=== PATIENT | female | born 1955 | race Caucasian/White ===

== ENCOUNTER 2022-04-14 13:13 | Outpatient (CLI) | payer MEDICARE, SELFPAY ==
--- NOTE | 2022-04-14 13:40 | CRLHL7_ITS ---
For Patients: As a result of the Century Cures Act, medical imaging exams and procedure reports are released immediately into your electronic medical record. You may view this report before your referring provider. If you have questions, please contact your health care provider. BILATERAL SCREENING MAMMOGRAM WITH COMPUTER-AIDED DETECTION AND TOMOSYNTHESIS TECHNIQUE: CC and MLO views were obtained. These mammographic images have been obtained using full-field digital technique. These mammographic images were interpreted with the benefit of computer-aided detection. Breast Tomosynthesis was used in this interpretation. COMPARISON FILM: 03/09/21, /, 02/13/19 FINDINGS: The breasts are heterogeneously dense, which may obscure small masses IMPRESSION: There is no radiographic evidence for malignancy. ASSESSMENT: BI-RADS Category 1: Negative RECOMMENDATION: Routine screening mammogram in 1 year. A lay language report of this examination will be provided to the patient. Navin Clark M.D. Diagnostic Radiologist [email or web address] SANJAY/Dictated by: Navin Clark MD @ 04/15/2022 9:21:00 AM (Electronically Signed)
== END 2022-04-14 13:14 | disposition home or self-care (01) ==
LOC: MAMMO 13:16
PROVIDERS: PCP Physician Assistant Medical; Visit Provider Physician Assistant Medical
DX: Z12.31 Encounter for screening mammogram for malignant neoplasm of breast (principal); R92.2 Inconclusive mammogram
CPT/HCPCS: 77063; 77067

== ENCOUNTER 2023-02-17 08:49 | Outpatient (CLI) | payer MEDICARE, SELFPAY ==
--- NOTE | 2023-02-17 09:17 | W.ANESCHARGE ---
Anesthesia Charges Start Date/Time Anesthesia Start Date: 02/17/23 Anesthesia Start Time: 09:58 Stop Date/Time Anesthesia Stop Date: 02/17/23 Anesthesia Stop Time: 10:41 Summary Extremes of Age - Over 70 or under 1: MDA
--- NOTE | 2023-02-17 10:44 | P.ANES_ITS ---
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
== END 2023-02-17 08:50 | disposition home or self-care (01) ==
LOC: OP CLINIC 08:49
PROVIDERS: PCP Physician Assistant Medical; Visit Provider Surgery
DX: Z12.11 Encounter for screening for malignant neoplasm of colon (principal); K63.5 Polyp of colon; K62.1 Rectal polyp; Z86.010 Personal history of colon polyps
CPT/HCPCS: 45385; 811; 88305; 99100; J2704

== ENCOUNTER 2023-04-27 13:11 | Outpatient (CLI) | payer MEDICARE, SELFPAY ==
--- NOTE | 2023-04-27 13:40 | CRLHL7_ITS ---
For Patients: As a result of the Century Cures Act, medical imaging exams and procedure reports are released immediately into your electronic medical record. You may view this report before your referring provider. If you have questions, please contact your health care provider. BILATERAL SCREENING MAMMOGRAM WITH COMPUTER-AIDED DETECTION AND TOMOSYNTHESIS TECHNIQUE: CC and MLO views were obtained. These mammographic images have been obtained using full-field digital technique. These mammographic images were interpreted with the benefit of computer-aided detection. Breast Tomosynthesis was used in this interpretation. COMPARISON FILM: 04/14/22, 03/09/21, 03/06/20. FINDINGS: The breasts are heterogeneously dense, which may obscure small masses IMPRESSION: There is no radiographic evidence for malignancy. ASSESSMENT: BI-RADS Category 1: Negative RECOMMENDATION: Routine screening mammogram in 1 year. A lay language report of this examination will be provided to the patient. Navin Clark M.D. Diagnostic Radiologist [email or web address] SANJAY/Dictated by: Navin Clark MD @ 04/28/2023 8:47:00 AM (Electronically Signed)
== END 2023-04-27 13:12 | disposition home or self-care (01) ==
LOC: MAMMO 13:13
PROVIDERS: PCP Physician Assistant Medical; Visit Provider Physician Assistant Medical
DX: Z12.31 Encounter for screening mammogram for malignant neoplasm of breast (principal); R92.2 Inconclusive mammogram
CPT/HCPCS: 77063; 77067

== ENCOUNTER 2024-01-31 12:42 | Outpatient (CLI) | payer MEDICARE, SELFPAY ==
--- NOTE | 2024-01-31 13:00 | MR_ITS ---
Patient: [facility] Facility:?[facility] Patient ID:?[id number] Site Patient ID:?[id number]. Site :?[id number] Study:?MRI-Head W/ and W/O Cont 20 CC DOATERM TRIGEMINAL-01/31/2024 2:26:34 PM Ordering Physician:?LUCY SAPP Final Report: Indication: Numbness in left side of head Technique: MRI brain trigeminal protocol with and without contrast. DWI and ADC mapping sequences. Sagittal T1 weighted sequence. Axial FLAIR and T2 weighted sequences of the whole brain. 3D T2-weighted high resolution sequence of the trigeminal nerves. Thin section T1 weighted axial and coronal pre-contrast and post-contrast sequences of the trigeminal nerves. 3D T1 weighted post-contrast sequence of the whole brain. 20 cc Dotarem gadolinium based contrast agent was used. Comparison: None Findings: No diffusion abnormalities. No evidence of recent or prior hemorrhage. No mass effect. The guerra and white matter are normal in signal intensity. The sella turcica, its contents and adjacent structures appear normal. All the major intracranial vascular structures demonstrate normal flow-related signal voids and intraluminal enhancement. The pituitary gland, optic chiasm, pineal gland, and cerebellar tonsils are unremarkable. The inner ears, internal auditory canals, cerebellopontine angle cisterns, cerebellum, brainstem and temporal lobes bilaterally are normal in appearance. A loop of the left AICA contacts the cephalad surface of the left trigeminal nerve without deformity of the nerve. There is no mass or pathologic enhancement involving the cranial nerves on either side. There is a 6 x 5 mm focus of intra-axial enhancement along the parafalcine left frontal lobe without parenchymal edema. Incidental hyperostosis frontalis internus. The orbital contents are normal. No marrow signal abnormality. The scalp and other imaged soft tissue structures are normal in appearance. Trace left mastoid effusion. Minimal mucosal thickening in the left sphenoid sinus. Impression: 1. No evidence of acute intracranial abnormality. 2. There is a 6 x 5 mm focus of presumed intra-axial enhancement along the parafalcine left frontal lobe without parenchymal edema. Differential considerations include capillary telangiectasia, enhancing infarct, however metastasis is not excluded. Repeat MRI brain routine protocol with SWI and multiplanar high-resolution T1 MP rage postcontrast sequences recommended in 1 month. 3. A loop of the left AICA contacts the cephalad surface of the left trigeminal nerve without deformity of the nerve. Dictated by Navin Gregg MD @ 02/01/2024 2:44:55 PM Signed by:?Navin Gregg MD @02/01/2024 2:44:55 PM (Electronic Signature)
== END 2024-01-31 12:43 | disposition home or self-care (01) ==
LOC: MRI 12:43
PROVIDERS: PCP Physician Assistant Medical; Visit Provider Otolaryngology
DX: R20.3 Hyperesthesia (principal); G93.9 Disorder of brain, unspecified
CPT/HCPCS: 70553; A9575

== ENCOUNTER 2024-03-05 12:31 | Outpatient (CLI) | payer MEDICARE, SELFPAY ==
--- NOTE | 2024-03-05 13:00 | CRLHL7_ITS ---
For Patients: As a result of the Century Cures Act, medical imaging exams and procedure reports are released immediately into your electronic medical record. You may view this report before your referring provider. If you have questions, please contact your health care provider. INDICATION: Abnormal finding on previous MRI. COMPARISON: 01/31/2024. TECHNIQUE: Multiplanar T1, T2, FLAIR and diffusion-weighted imaging.. Post gadolinium T1 weighted sequences. FINDINGS: Normal brain parenchymal morphology. Few scattered foci of T2/FLAIR signal hyperintensity within the white matter both supra hemispheres nonspecific but likely represent chronic deep white matter small vessel ischemic changes or sequela of migraine headache. No intracranial hemorrhage. No abnormal ventricular dilatation. Intracranial vascular flow voids are preserved. No mass effect or midline shift. No restricted diffusion to suggest acute ischemia. Compared to the previous exam, again seen is a stable small 6 x 5 mm focus of enhancement involving the cortex of the para falcine left frontal lobe (series 13, image 119). Again, there is no surrounding edema. On the current study, there is corresponding susceptibility artifact (series 7, image 33). No abnormal enhancement elsewhere. Bilateral orbits are unremarkable. Normal appearing sella. Visualized paranasal sinuses and mastoid air cells are unremarkable. IMPRESSION: 1. No interval change. 2. No acute intracranial abnormality. 3. Stable size and appearance of a 6 x 5 millimeter enhancing focus involving the cortex of the parasagittal left frontal lobe. No surrounding edema. On the current study, there is corresponding susceptibility artifact. Differential considerations include capillary telangiectasia. Calcified mass or evolving infarct are considered less likely. Recommend interval follow-up in 6-12 months confirm stability. 4. No abnormal enhancement elsewhere. Dictated by Kemar Dickerson MD @ 03/06/2024 12:12:02 PM (Electronically Signed)
== END 2024-03-05 12:32 | disposition home or self-care (01) ==
LOC: MRI 12:32
PROVIDERS: PCP Physician Assistant Medical; Visit Provider Otolaryngology
DX: G93.9 Disorder of brain, unspecified (principal)
CPT/HCPCS: 70553; A9575